=== PATIENT | female | born 1990 | race African-American/Black ===

== ENCOUNTER 2022-02-12 12:19 | Emergency (ER) | payer MEDICARE ==
[~2022-02-12] VITALS: Ht 162.6 cm; Wt 69.0 kg
[2022-02-12] MEDS ORDERED: LORAZEPAM 1MG TABLET PO ONE (13:15)
[2022-02-12 13:21] LABS: BASOPHILS % 1.4 % (0.0-2.0); CHLORIDE 108 mEq/L (98-107); EOSINOPHILS % 1.7 % (0.0-5.0); HEMATOCRIT. 29.8 % (36.0-48.0); HEMOGLOBIN. 9.7 g/dL (12.0-16.0); LYMPHOCYTES % 42.7 % (20.0-50.0); MEAN CORPUSCULAR HEMOGLOBIN 23.9 pg (28.0-32.0); MEAN CORPUSCULAR VOLUME 73.4 fL (81.0-99.0); MEAN PLATELET VOLUME 7.6 fl (7.4-10.4); MONOCYTES % 7.1 % (2.0-8.0); NEUTROPHILS % 47.1 % (40.0-76.0); PLATELET 329 x1000/uL (130-400); RED BLOOD CELL COUNT 4.07 mill/uL (4.2-5.4); RED CELL DISTRIBUTION WIDTH 20.9 % (11.6-14.6)
[2022-02-12 13:29] LABS: ETHANOL BLOOD < 10 mg/dL
[2022-02-12 14:01] LABS: HCG SCREEN NEGATIVE
[2022-02-13 11:52] VITALS: BP 108/71
== END 2022-02-13 11:54 | disposition home or self-care (01) ==
LOC: ER 12:19
DX: R45.851 Suicidal ideations (principal); D64.9 Anemia, unspecified
CPT/HCPCS: 36415; 80053; 80307; 80320; 80329; 84703; 85025; 99285; G0480